=== PATIENT | male | born 1980 | race American Indian/Alaskan Native ===

== ENCOUNTER 2017-05-01 13:36 | Inpatient (IN) | payer MEDICAID, OTHER ==
[2017-05-01 13:36] VITALS: BMI 24.4
[2017-05-01 15:35] LABS: BASO % 0.6 % (0.0-2.0); EOS % 0.2 % (0.0-4.0); HEMATOCRIT 44.8 % (35.0-51.0); LYMPH # 3.1 K/uL (1.0-4.3); LYMPH % 47.2 % (20.0-40.0); MEAN CELL VOLUME 90.2 fL (80.0-94.0); MEAN CORPUSCULAR HEMOGLOBIN 29.5 pg (27.0-31.0); MEAN CORPUSCULAR HGB CONC 32.7 g/dL (33.0-37.0); MEAN PLATELET VOLUME 7.1 fL (7.2-11.7); MONO # 0.3 K/uL (0.0-0.8); MONO % 4.6 % (0.0-10.0); NRBC % 0.1 % (0.0-2.0); RED CELL DISTRIBUTION WIDTH 14.5 % (11.5-14.5); WHITE BLOOD COUNT 6.5 K/uL (4.8-10.8)
[2017-05-01 15:44] LABS: CHLORIDE 97 mmol/L (98-107); POTASSIUM 3.7 mmol/L (3.6-5.2); SODIUM 141 mmol/L (132-148)
[2017-05-01 15:46] LABS: ALB/GLOB RATIO 1.3 (1.0-2.1); ALKALINE PHOSPHATASE 67 U/L (38-126); AST/SGOT 56 U/L (17-59); BILIRUBIN,TOTAL 0.6 mg/dL (0.2-1.3); BLOOD UREA NITROGEN 12 mg/dL (9-20); CARBON DIOXIDE 27 mmol/L (22-30); GFR AFRICAN-AMERICAN > 60; TOTAL PROTEIN 8.1 g/dL (6.3-8.3)
[2017-05-01 15:47] LABS: ALCOHOL SERUM 292 mg/dl (0-10); ALT/SGPT 67 U/L (21-72); CALCIUM 8.4 mg/dl (8.6-10.4); GLUCOSE,RANDOM 89 mg/dL (75-110)
[2017-05-01 15:48] LABS: RBC URINE 24 /hpf (0-3); URINE BILIRUBIN NEGATIVE (NEGATIVE); URINE BLOOD 2+ (NEGATIVE); URINE COLOR Yellow (YELLOW); URINE GLUCOSE (UA) NORMAL (Normal); URINE KETONE NEGATIVE (NEGATIVE); URINE LEUKOCYTE ESTERASE NEG Leu/uL (Negative); URINE PROTEIN 1+ mg/dL (NEGATIVE); URINE UROBILINOGEN NORMAL mg/dL (0.2-1.0); WBC URINE 2 /hpf (0-5)
--- NOTE | 2017-05-01 18:14 | C.PDOC ---
History Of Present Illness Pt is here requesting detox from alcohol. Time Seen by Provider: 05/01/17 15:07 Chief Complaint (Nursing): Substance Abuse History Per: Patient Onset/Duration Of Symptoms: Days Current Symptoms Are (Timing): Still Present Suicide/Self Injury Attempted (Context): None Modifying Factor(s): Alcohol Severity: Moderate Associated Symptoms: denies: Suicidal Thoughts, Suicidal Plan Additional History Per: Prior Records Past Medical History Reviewed: Historical Data, Nursing Documentation, Vital Signs Vital Signs: Last Vital Signs Temp 98.0 F 05/01/17 16:59 Pulse 103 H 05/01/17 16:59 Resp 18 05/01/17 16:59 BP 126/86 05/01/17 16:59 Pulse Ox 99 05/01/17 18:14 - Medical History PMH: Anxiety, Depression, Hiatal Hernia, HTN, Chronic Kidney Disease Other PMH: Alcohol abuse Surgical History: Appendectomy Other Surgeries: Gastric bypass - [facility] Procedures DETOXIFICATION SERVICES FOR SUBSTANCE ABUSE TREATMENT (01/13/17) INDIV PSYCHOTHERAPY FOR SUBSTANCE ABUSE TREATMENT, SUPPORT (01/13/17) INDIV PSYCHOTHERAPY FOR SUBSTANCE ABUSE, COGNITIV BEHAVIORAL (01/13/17) INJECT/INFUSE ELECTROLYT (06/26/13) INJECT/INFUSE NEC (12/12/14) MEDS MGMT FOR SUBSTANCE ABUSE TREATMENT, ANTABUSE (01/13/17) OTHER APPENDECTOMY (07/02/13) Family History: States: Unknown Family Hx - Social History Hx Tobacco Use: No Hx Alcohol Use: Yes (heavy drinker.) Hx Substance Use: No - Immunization History Hx Tetanus Toxoid Vaccination: No Hx Influenza Vaccination: No Hx Pneumococcal Vaccination: No Review Of Systems Except As Marked, All Systems Reviewed And Found Negative. Constitutional: Negative for: Fever, Weakness Cardiovascular: Negative for: Chest Pain Respiratory: Negative for: Shortness of Breath Musculoskeletal: Negative for: Neck Pain Skin: Negative for: Rash Neurological: Negative for: Weakness, Numbness, Seizures Psych: Negative for: Psychosis Physical Exam - Physical Exam Appears: Non-toxic, No Acute Distress, Other (AOB) Skin: Normal Color, Warm, Dry, No Rash Head: Atraumatic, Normacephalic Eye(s): bilateral: Normal Inspection, PERRL, EOMI Neck: Normal ROM, Supple Cardiovascular: Rhythm Regular Respiratory: Normal Breath Sounds, No Accessory Muscle Use Gastrointestinal/Abdominal: Soft Extremity: Normal ROM, No Deformity Neurological/Psych: Oriented x3, Normal Motor, Normal Sensation ED Course And Treatment - Laboratory Results Result Diagrams: 05/01/17 15:38 05/01/17 15:30 Interpretation Of Abnormal: Elevated alcohol level. O2 Sat by Pulse Oximetry: 99 Pulse Ox Interpretation: Normal Disposition - Disposition Disposition Time: 19:49 Condition: STABLE - Clinical Impression Clinical Impression: Alcohol dependence Physician Patient Turnover Patient Signed Over To: Vadim Kumar Handoff Comments: to f/up bushel worker eval. and reassesss pt.
[2017-05-02] MEDS ORDERED: Pneumococcal 23-Valent Vaccine IM ONE (03:15)
[2017-05-02] MEDS: Multiple Vitamins Tab PO SCH (09:40)
--- NOTE | 2017-05-02 12:56 | PCM.PSYCH ---
Initial Psychiatric Evaluation - Initial Psychiatric Evaluation Type of Admission: Voluntary Legal Status: Capacity Chief Complaint (in patient's own words): "I relapsed" History of Present Illness and Precipitating Events: Pt seen, chart reviewed, and case discussed with team. He is known from previous admissions. Pt is a 36yo AA M, in a relationship but not sure if they are still together now that he relapsed, has 2 children aged 10 with his parents, was employed but lost job recently. He gives inconsistent answers at times. Pt is here for detox after relapsing with alcohol use again, currently the pt reports that he drinks many bottles of wine daily for the past 4-5 days. Pt has been in this detox unit twice before and was d/c to [facility] in january 2017. He says he went for a while and then relapsed. He denies other drug use but gets rx for xanax 0.5 "20 pills a month" He has wdw sxs Pt currently denies depression, hallucinations, delusions, suicidal ideation, and other thoughts of self harm. He looks pleasant. Psych: denies PMH: HTN SurgHx: Gastric bypass, appendectomy, abd hernia repair x2 Allergies: NKDA FamHx: denies Current Medications: Active Medications Generic Name Dose Route Start Last Admin Trade Name Freq PRN Reason Stop Dose Admin Chlordiazepoxide 25 mg 05/02/17 00:00 05/02/17 06:42 Librium PO 05/05/17 23:59 25 mg Q6 IVAN Administration Taper Chlordiazepoxide 25 mg 05/01/17 22:26 05/02/17 07:53 Librium PO 25 mg Q4H PRN Administration Alcohol Withdrawal Clonidine HCl 0.1 mg 05/02/17 00:43 05/02/17 00:48 Catapres PO 0.1 mg Q4H PRN Administration Symptoms of alcohol withdrawl Folic Acid 1 mg 05/02/17 10:00 05/02/17 09:40 Folic Acid PO 1 mg DAILY IVAN Administration Multivitamins 1 tab 05/02/17 10:00 05/02/17 09:40 Hexavitamin PO 1 tab DAILY IVAN Administration Ondansetron HCl 4 mg 05/02/17 00:43 05/02/17 07:54 Zofran Tab PO 4 mg Q8 PRN Administration Nausea/Vomiting Pneumococcal Polyvalent Vaccine 0.5 ml 05/05/17 10:00 Pneumovax 23 Vaccine IM 05/05/17 10:01 .ONCE ONE Thiamine HCl 100 mg 05/02/17 10:00 05/02/17 09:40 Vitamin B1 Tab PO 100 mg DAILY IVAN Administration Trazodone HCl 100 mg 05/02/17 09:46 Desyrel PO HS PRN Insomnia Past Psychiatric History - Past Psychiatric History Previous Treatment History: None Pertinent Medical Hx (Current Medical&Sleep Prob, Allergies): Allergies Allergy/AdvReac Type Severity Reaction Status Date / Time sesame seed Allergy ANAPHYLAXIS Verified 05/01/17 14:13 hummus Allergy ANAPHYLAXIS Uncoded 05/01/17 14:13 No Known Home Med 05/01/17 Review of Systems - Psychiatric Psychiatric: Abnormal Sleep Pattern, Anxiety, Difficulty Concentrating. absent : Depression, Hallucinations, Homicidal Ideation, Suicidal Ideation Mental Status Examination - Personal Presentation Personal Presentation: Looks stated age - Affect Affect: Constricted - Motor Activity Motor Activity: Calm - Reliability in Providing Information Reliability in Providing Information: Fair - Speech Speech: Organized - Mood Mood: Anxious - Formal Thought Process Formal Thought Process: No Impairment - Cognitive Functions Orientation: Person, Place, Situation, Time Sensorium: Alert Attention/Concentration: Attentive Estimate of Intelligence: Average Judgement: Intact, as evidence by: Insight regarding need for hospitalization Memory: Recent intact, as evidence by: Ability to recall events of the day, Remote intact, as evidenced by: Abilit to recall sig. life events - Risk Risk: Withdrawal, Diminished functioning - Strength & Assets Inventory Strength & Assets Inventory: Cooperative - Limitations Limitations: Living alone DSM 5 DX - DSM 5 DSM 5 Diagnosis: Alcohol withdrawal Alcohol use d/o - seveer r/o sedative hypnotic use d/o - moderate - Recommended/Plan of Treatment Projected ELOS: 4 days Prognosis: Good with treatment Discharge Plan and Discharge Criteria: No wdw sxs Refer to rehab and MAT - Smoking Cessation Smoking Cessation Initiated: Yes
[2017-05-03] MEDS: Multiple Vitamins Tab PO SCH (09:19)
--- NOTE | 2017-05-03 13:21 | PCM.PYCHPN ---
Psychiatric Progress Note - Psychiatric Progress Note Patient seen today, length of contact: 16 min Patient Chief Complaint: "I am better" Problems Identified/Issues Discussed: The pt is seen, chart reviewed, case discussed with staff. Support given, CBT and NM used briefly No new symptoms reported, improving slowly and needs more time No SEs from medications, risks discussed. After care discussed Medication Change: Yes (detox changes daily) Medical Record Reviewed: Yes Mental Status Examination - Cognitive Function Orientation: Person, Place, Situation, Time Memory: Intact Attention: WNL Concentration: WNL Association: WNL Fund of Knowledge: WNL - Mood Mood: Anxious - Affect Affect: Constricted - Speech Speech: Appropriate - Formal Thought Process Formal Thought Process: No Impairment - Suicidal Ideation Suicidal Ideation: No - Homicidal Ideation Homicidal Ideation: No Goal/Treatment Plan - Goal/Treatment Plan Need for Continued Stay: Discharge may exacerbated symptoms, Severe functional impairment Progress Toward Problem(s) and Goals/Treatment Plan: Librium detox Gabapentin for augmentation As needed meds and vitamins Attend groups and activities NM for abstinence and CBT for relapse prevention Support and psychoeducation Consider and encourage MAT, ie Naltrexone, followed by Vivitrol Refer to after care
[2017-05-04] MEDS: Multiple Vitamins Tab PO SCH (09:58)
--- NOTE | 2017-05-04 14:15 | PCM.PYCHPN ---
Psychiatric Progress Note - Psychiatric Progress Note Patient seen today, length of contact: 16 min Patient Chief Complaint: "I am OK but afraid of relapse" Problems Identified/Issues Discussed: The pt is seen, chart reviewed, case discussed with staff. The pt is compliant with medications and reports no side-effects. Symptoms are improving but needs more time to stabilize. After care discussed, support and psychoeducation given. Relapse prevention discussed Medication Change: Yes (detox changes daily) Medical Record Reviewed: Yes Mental Status Examination - Cognitive Function Orientation: Person, Place, Situation, Time Memory: Intact Attention: WNL Concentration: WNL Association: WNL Fund of Knowledge: WNL - Mood Mood: Anxious - Affect Affect: Constricted - Speech Speech: Appropriate - Formal Thought Process Formal Thought Process: No Impairment - Suicidal Ideation Suicidal Ideation: No - Homicidal Ideation Homicidal Ideation: No Goal/Treatment Plan - Goal/Treatment Plan Need for Continued Stay: Discharge may exacerbated symptoms, Severe functional impairment Progress Toward Problem(s) and Goals/Treatment Plan: Librium detox Gabapentin for augmentation As needed meds and vitamins Attend groups and activities CT for abstinence and CBT for relapse prevention Support and psychoeducation Consider and encourage MAT, ie Naltrexone, followed by Soo Referred to after care Estimated Date of D/C: 05/05/17
[2017-05-04] MEDS: Aritificial Tears (15ml) OU PRN (20:36)
[2017-05-04] MEDS ORDERED: Vitamins A & D Oint UD Foilpak TOP ONE (22:52)
[2017-05-05] MEDS: Aritificial Tears (15ml) OU PRN (07:42)
--- NOTE | 2017-05-05 08:44 | PCM.PYCHDC ---
Mental Status Examination - Mental Status Examination Orientation: Person, Place, Situation, Time Memory: Intact Mood: Anxious Affect: Broad Speech: Appropriate Attention: WNL Concentration: WNL Association: WNL Fund of Knowledge: WNL Formal Thought Process: No Impairment Suicidal Ideation: No Current Homicidal Ideation?: No Discharge Summary - Discharge Note Reason for Hospitalization: Alcohol detox Psychiatric History (includes Medical, Family, Personal Hx): None Consultations:: List each consultation separately and include: 1. Reason for request. 2. Findings. 3. Follow-up Consultations: None Summary of Hospital Course include:: 1. Description of specific treatment plan utilized for patients during their course of treatmen. 2. Summarize the time- course for resolution of acute symptoms and/or regressed behaviors. 3. Describe issues identified and worked on during hospitalization. 4. Describe medication utilized. 5. Describe medical problems identified and treated. 6. Reassessment of suicide risk Summary of Hospital Course: On admission: Pt seen, chart reviewed, and case discussed with team. He is known from previous admissions. Pt is a 36yo AA M, in a relationship but not sure if they are still together now that he relapsed, has 2 children aged 10 with his parents, was employed but lost job recently. He gives inconsistent answers at times. Pt is here for detox after relapsing with alcohol use again, currently the pt reports that he drinks many bottles of wine daily for the past 4-5 days. Pt has been in this detox unit twice before and was d/c to [facility] in january 2017. He says he went for a while and then relapsed. He denies other drug use but gets rx for xanax 0.5 "20 pills a month" He has wdw sxs Pt currently denies depression, hallucinations, delusions, suicidal ideation, and other thoughts of self harm. He looks pleasant. Psych: denies PMH: HTN SurgHx: Gastric bypass, appendectomy, abd hernia repair x2 Allergies: NKDA FamHx: denies Hospital course: The pt was admitted and started on treatment with psychotherapy, support, psychoeducation and medications. UT and CBT used. The pt attended groups and activities, as well as milieu therapy. All the risks and benefits of medications are discussed and the patient understood and agreed. After care discussed with the patient. He went to [facility] and is committed to getting the Vivitrol shot "RANDAL!" He was pleasant and motivated, but anxious. - Final Diagnosis (DSM 5) Condition upon Discharge: STABLE DSM 5: Alcohol withdrawal Alcohol use d/o - severe r/o sedative hypnotic use d/o - moderate Disposition: HOME/ ROUTINE Follow-up Treatment Plan: Continue below medications after discharge. Follow after care plan as discussed. At [facility] Use relapse prevention skills Return to ER or call 911 if suicidal, homicidal or symptoms relapse. Stay away from stress, alcohol and drugs. See primary doctor once a year. Prescriptions/Medication Reconciliation: Gabapentin [Neurontin] 300 mg PO TID #90 cap Naltrexone [Revia] 50 mg PO DAILY #30 tab traZODone [Desyrel] 100 mg PO HS PRN #30 tab PRN Reason: Insomnia - Smoking Cessation Smoking Cessation Medication prescribed: No - Antipsychotic Medications Pt discharged on 2 or more routine antipsychotic medications: No
[2017-05-05] MEDS: Multiple Vitamins Tab PO SCH (09:46)
[2017-05-05] MEDS ORDERED: Pneumococcal 23-Valent Vaccine IM ONE (10:00)
[2017-05-05 10:49] VITALS: BP 115/80; PULSE 94; RESP 18; TEMP 97.5; O2SAT 99
[2017-05-05] MEDS ORDERED: Vitamins A & D Oint UD Foilpak TOP ONE (22:27)
== END 2017-05-05 10:45 | disposition home or self-care (01) | DRG 750 ==
LOC: C.ER 13:36 → C.7D 22:06
PROVIDERS: ADMIT Psychiatry & Neurology Psychiatry; ATTEND Psychiatry & Neurology Psychiatry
PROC: HZ2ZZZZ Detoxification Services for Substance Abuse Treatment (ICD-10-PCS; principal; 2017-05-01)
PROC: HZ52ZZZ Individual Psychotherapy for Substance Abuse Treatment, Cognitive-Behavioral (ICD-10-PCS; 2017-05-01)
PROC: HZ59ZZZ Individual Psychotherapy for Substance Abuse Treatment, Supportive (ICD-10-PCS; 2017-05-01)
PROC: HZ56ZZZ Individual Psychotherapy for Substance Abuse Treatment, Psychoeducation (ICD-10-PCS; 2017-05-01)
DX: F10.230 Alcohol dependence with withdrawal, uncomplicated (principal); N18.9 Chronic kidney disease, unspecified; I12.9 Hypertensive chronic kidney disease with stage 1 through stage 4 chronic kidney disease, or unspecified chronic kidney disease; F32.9 Major depressive disorder, single episode, unspecified; F41.9 Anxiety disorder, unspecified; K44.9 Diaphragmatic hernia without obstruction or gangrene; Z98.84 Bariatric surgery status

== ENCOUNTER 2019-03-09 19:19 | Inpatient (IN) | payer MEDICAID, OTHER ==
[2019-03-09 19:19] VITALS: BMI 24.4
[2019-03-09 20:11] LABS: BASO # 0.1 K/uL (0.0-0.2); BASO % 1.2 % (0.0-2.0); EOS # 0.1 K/uL (0.0-0.7); EOS % 1.1 % (0.0-4.0); HEMOGLOBIN 16.1 g/dL (12.0-18.0); LYMPH # 3.4 K/uL (1.0-4.3); LYMPH % 56.6 % (20.0-40.0); MEAN CELL VOLUME 88.6 fL (80.0-94.0); MEAN CORPUSCULAR HEMOGLOBIN 28.7 pg (27.0-31.0); MEAN CORPUSCULAR HGB CONC 32.4 g/dL (33.0-37.0); MEAN PLATELET VOLUME 6.7 fL (7.2-11.7); MONO # 0.4 K/uL (0.0-0.8); MONO % 5.8 % (0.0-10.0); NEUT # 2.1 K/uL (1.8-7.0); NEUT % 35.3 % (50.0-75.0); NRBC % 0.1 % (0.0-2.0); RBC 5.61 Mil/uL (4.40-5.90); RED CELL DISTRIBUTION WIDTH 15.5 % (11.5-14.5); WHITE BLOOD COUNT 6.1 K/uL (4.8-10.8)
[2019-03-09 20:23] LABS: ALB/GLOB RATIO 1.4 (1.0-2.1); ALBUMIN 4.8 g/dL (3.5-5.0); ALT/SGPT 40 U/L (21-72); AST/SGOT 58 U/L (17-59); BLOOD UREA NITROGEN 14 mg/dL (9-20); CALCIUM 8.8 mg/dl (8.6-10.4); GFR NON-AFRICAN AMERICAN > 60
--- NOTE | 2019-03-09 20:52 | C.PDOC ---
History Of Present Illness 38 year old male presents to the ED requesting detox for alcohol abuse. Patient reports his last drink was this morning. Patient denies SI/HI, hallucinations, drug use, tobacco use, other medical complaints at this time. Time Seen by Provider: 03/09/19 19:42 Chief Complaint (Nursing): Substance Abuse History Per: Patient History/Exam Limitations: no limitations Onset/Duration Of Symptoms: Hrs Current Symptoms Are (Timing): Still Present Suicide/Self Injury Attempted (Context): None Modifying Factor(s): Alcohol Associated Symptoms: denies: Depression, Suicidal Thoughts, Suicidal Plan Recent travel outside of the [place]: No Additional History Per: Patient Past Medical History Reviewed: Historical Data, Nursing Documentation, Vital Signs Vital Signs: Last Vital Signs Temp 97.8 F 03/09/19 19:39 Pulse 110 H 03/09/19 19:39 Resp 18 03/09/19 19:39 BP 123/94 H 03/09/19 19:39 Pulse Ox 96 03/09/19 19:39 - Medical History PMH: Anxiety, Depression, Hiatal Hernia, HTN, Seizures Denies: Diabetes, Hepatitis, HIV, Chronic Kidney Disease, Sexually Transmitted Disease Surgical History: Appendectomy - [facility] Procedures DETOXIFICATION SERVICES FOR SUBSTANCE ABUSE TREATMENT (05/01/17) INDIV PSYCHOTHERAPY FOR SUBSTANCE ABUSE TREATMENT, SUPPORT (05/01/17) INDIV PSYCHOTHERAPY FOR SUBSTANCE ABUSE, COGNITIV BEHAVIORAL (05/01/17) INDIV PSYCHOTHERAPY FOR SUBSTANCE ABUSE, PSYCHOEDUCATION (05/01/17) INJECT/INFUSE ELECTROLYT (06/26/13) INJECT/INFUSE NEC (12/12/14) MEDS MGMT FOR SUBSTANCE ABUSE TREATMENT, ANTABUSE (01/13/17) OTHER APPENDECTOMY (07/02/13) Family History: States: Unknown Family Hx - Social History Hx Tobacco Use: No Hx Alcohol Use: Yes Hx Substance Use: No - Immunization History Hx Tetanus Toxoid Vaccination: No Hx Influenza Vaccination: No Hx Pneumococcal Vaccination: No Review Of Systems Constitutional: Negative for: Fever, Chills Cardiovascular: Negative for: Chest Pain Respiratory: Negative for: Shortness of Breath Gastrointestinal: Negative for: Nausea, Vomiting, Abdominal Pain Skin: Negative for: Rash Psych: Negative for: Depression, Suicidal ideation Physical Exam - Physical Exam Appears: Non-toxic, No Acute Distress Skin: Normal Color, Warm, Dry Head: Atraumatic, Normacephalic Eye(s): bilateral: Normal Inspection Neck: Normal ROM, Supple Chest: Symmetrical Cardiovascular: Rhythm Regular Respiratory: Normal Breath Sounds, No Rales, No Rhonchi, No Wheezing Gastrointestinal/Abdominal: Soft, No Tenderness Extremity: Normal ROM, No Tenderness, No Swelling Neurological/Psych: Oriented x3, Normal Speech, Normal Cognition Gait: Steady ED Course And Treatment - Laboratory Results Result Diagrams: 03/09/19 20:08 03/09/19 20:08 Lab Results: Total Bilirubin 0.5 mg/dL (0.2-1.3) 03/09/19 20:08 AST 58 U/L (17-59) 03/09/19 20:08 ALT 40 U/L (21-72) 03/09/19 20:08 Alkaline Phosphatase 81 U/L (38-126) 03/09/19 20:08 Total Protein 8.2 g/dL (6.3-8.3) 03/09/19 20:08 Albumin 4.8 g/dL (3.5-5.0) 03/09/19 20:08 Globulin 3.4 gm/dL (2.2-3.9) 03/09/19 20:08 Albumin/Globulin Ratio 1.4 (1.0-2.1) 03/09/19 20:08 O2 Sat by Pulse Oximetry: 96 (ON RA) Pulse Ox Interpretation: Normal Medical Decision Making Medical Decision Making: Plan: * labs * ua * crisis eval Patient is medically cleared Disposition - Disposition Disposition: HOSPITALIZED Disposition Time: 21:00 Condition: STABLE - Clinical Impression Clinical Impression: Alcohol dependence - Scribe Statement The provider has reviewed the documentation as recorded by the Scribe Wilmer Hurtado All medical record entries made by the Scribe were at my direction and personally dictated by me. I have reviewed the chart and agree that the record accurately reflects my personal performance of the history, physical exam, medical decision making, and the department course for this patient. I have also personally directed, reviewed, and agree with the discharge instructions and disposition.
[2019-03-09 21:10] LABS: SQUAMOUS EPITHIAL 3 /hpf (0-5); URINE BACTERIA OCC (<OCC); URINE BILIRUBIN NEGATIVE (NEGATIVE); URINE BLOOD 3+ (NEGATIVE); URINE CLARITY Hazy (Clear); URINE COLOR Yellow (YELLOW); URINE GLUCOSE (UA) NORMAL (Normal); URINE LEUKOCYTE ESTERASE NEG Leu/uL (Negative); URINE PROTEIN 1+ mg/dL (NEGATIVE); URINE UROBILINOGEN NORMAL mg/dL (0.2-1.0)
[2019-03-09 21:17] LABS: BARBITURATES, UR NEGATIVE (NEGATIVE); BENZODIAZEPINES, UR NEGATIVE (NEGATIVE); OPIATES, UR NEGATIVE (NEGATIVE); PHENCYCLIDINE, UR NEGATIVE (NEGATIVE)
--- NOTE | 2019-03-09 22:14 | PCM.BM ---
<Ariel Manley - Last Filed: 03/09/19 22:11> Treatment Plan Problems - Problems identified on initial assessmt Denial Date Initiated: 03/09/19 Time Initiated: 22:12 Assessment reference: NA Status: Active Anxiety Related to Substance Use Date Initiated: 03/09/19 Time Initiated: 22:12 Assessment reference: NA Status: Active Defensive Coping Date Initiated: 03/09/19 Time Initiated: 22:12 Assessment reference: NA Status: Active Treatment assets and liabiliti Patient Assests: cooperative, negotiates basic needs Patient Liabilities: substance abuse <Bailey Cr - Last Filed: 03/12/19 13:27> Family Contact Family involvement: Famliy/SO not involved - Goals for Treatment Patient goals for treatment: Complete detox and resume AA meetings. Discharge/Continuing Care - Education Needs Education Needs: Patient Medication, Patient Diagnosis/Disease Process, Patient Coping Skills, Patient Anger Management skills, Patient Placement options, Patient Community resources - Discharge Discharge Criteria: No longer exhibiting s/s of withdrawal, Reduction of target symptoms Discharge to:: Home - Treatment Team Participation Patient/Family/SO Statement: 03/12/19 13:26 "I just wanna get back to meetings..." Discussed with Family/SO: No Was Patient/Family/SO present at Treatment Team Meeting: Yes
--- NOTE | 2019-03-10 22:06 | PCM.PSYCH ---
Initial Psychiatric Evaluation - Initial Psychiatric Evaluation Type of Admission: Voluntary Legal Status: Capacity Chief Complaint (in patient's own words): Patient is a 38 year old -[place]ish male, who presented to the ED for alcohol detox. Patient reports that he has been drinking "everything" and was unable to quantify how much he has been drinking. He reports drinking from morning to evening. He reports that he had been sober for 2 years, and relapsed last Monday. Patient reports that he started drinking 3 years ago after he lost his job. He reports that he went to [facility] then being transferred to [facility] for Detox the first time. Patient reports a history of shakes, sweats and visual hallucinations while withdrawing. He denies any history of seizures of DTs. He report that he has not been to any other detox other than [facility]. He denies any illicit drug use, tobacco use, denies SI/HI, delusions or paranoia at this time. PyschHx: Alcohol Use Disorder PMHx: Hx of pancreatitis FamHx: Uncle and brother - Alcohol use disorder Current Medications: Active Medications Generic Name Dose Route Start Last Admin Trade Name Freq PRN Reason Stop Dose Admin Chlordiazepoxide 25 mg 03/10/19 03:03 03/10/19 18:55 Librium PO 25 mg Q6H PRN Administration ETOH WITHDRAWAL Chlordiazepoxide 25 mg 03/10/19 12:00 03/10/19 17:01 Librium PO 03/14/19 11:59 25 mg Q6 IVAN Administration Taper Clonidine HCl 0.1 mg 03/10/19 16:27 03/10/19 21:27 Catapres PO 0.1 mg Q4H PRN Administration Symptoms of alcohol withdrawl Ondansetron HCl 4 mg 03/10/19 02:49 03/10/19 03:04 Zofran Tab PO 4 mg Q6H PRN Administration Nausea/Vomiting Pneumococcal Polyvalent Vaccine 0.5 ml 03/13/19 10:00 Pneumovax 23 Vaccine IM 03/13/19 10:01 .ONCE ONE Trazodone HCl 50 mg 03/10/19 22:00 03/10/19 21:26 Desyrel PO 50 mg HS IVAN Administration Past Psychiatric History - Past Psychiatric History Pertinent Medical Hx (Current Medical&Sleep Prob, Allergies): Allergies Allergy/AdvReac Type Severity Reaction Status Date / Time sesame seed Allergy ANAPHYLAXIS Verified 03/09/19 19:42 hummus Allergy ANAPHYLAXIS Uncoded 03/09/19 19:42 No Known Home Med 03/09/19 Review of Systems - Psychiatric Psychiatric: As Per HPI, Abnormal Sleep Pattern, Anxiety, Behavioral Changes, Depression Mental Status Examination - Personal Presentation Personal Presentation: Looks stated age - Affect Affect: Constricted, Depressed - Motor Activity Motor Activity: Calm - Reliability in Providing Information Reliability in Providing Information: Fair - Speech Speech: Relevant, Coherent - Mood Mood: Depressed, Anxious - Formal Thought Process Formal Thought Process: No Impairment - Obsessions/Compulsions Obsessions: None Compulsions: None - Cognitive Functions Orientation: Person, Place, Situation, Time Sensorium: Alert Attention/Concentration: Attentive Estimate of Intelligence: Average Judgement: Imparied, as evidence by: Poor judgement - Strength & Assets Inventory Strength & Assets Inventory: Employment status DSM 5 DX - DSM 5 DSM 5 Diagnosis: Alcohol Use Disorder - Recommended/Plan of Treatment Treatment Recommendations and Plan of Treatment: Taper with Librium Gabapentin for augmentation if needed As needed medications: - Clonidine, Librium, Trazodone All risks, benefits and alternatives of the meds discussed, and the pt agreed and understood. Attend groups and activities Supportive therapy and psychoeducation MN for abstinence CBT for relapse prevention Encourage MAT Refer to rehab or IOP, and self-help groups Teach healthy lifestyle methods, i.e. diet, exercise, meditation Smoking cessation with MN Nicotine patch if needed 34 min - Smoking Cessation Smoking Cessation Initiated: No Reason for not providing: Patient is not a smoker
--- NOTE | 2019-03-11 23:23 | PCM.PYCHPN ---
Psychiatric Progress Note - Psychiatric Progress Note Medication Change: Yes Medical Record Reviewed: Yes Mental Status Examination - Cognitive Function Orientation: Person, Place, Situation, Time - Mood Mood: Depressed, Anxious - Affect Affect: Constricted, Depressed - Formal Thought Process Formal Thought Process: No Impairment
[2019-03-13 06:08] VITALS: BP 124/87; PULSE 70; RESP 20; TEMP 97.5; O2SAT 99
[2019-03-13] MEDS ORDERED: Pneumococcal 23-Valent Vaccine IM ONE ×2 (10:00)
--- NOTE | 2019-03-13 14:11 | PCM.PYCHDC ---
Mental Status Examination - Mental Status Examination Orientation: Person, Place, Situation, Time Memory: Intact Mood: Anxious Affect: Constricted Speech: Appropriate Attention: WNL Concentration: WNL Association: WNL Fund of Knowledge: WNL Formal Thought Process: No Impairment Suicidal Ideation: No Current Homicidal Ideation?: No Discharge Summary - Discharge Note Reason for Hospitalization: Alcohol detox Consultations:: List each consultation separately and include: 1. Reason for request. 2. Findings. 3. Follow-up Summary of Hospital Course include:: 1. Description of specific treatment plan utilized for patients during their course of treatmen. 2. Summarize the time- course for resolution of acute symptoms and/or regressed behaviors. 3. Describe issues identified and worked on during hospitalization. 4. Describe medication utilized. 5. Describe medical problems identified and treated. 6. Reassessment of suicide risk Summary of Hospital Course: Hospital course: The pt was admitted and started on treatment with psychotherapy, support, psychoeducation and medications. CO and CBT used. The pt attended groups and activities, as well as milieu therapy. All the risks and benefits of medications are discussed and the patient understood and agreed. The pt improved with the treatments provided. After care discussed with the patient. He will attend AA and consider IOP. - Final Diagnosis (DSM 5) Condition upon Discharge: STABLE DSM 5: Alcohol Use Disorder Disposition: HOME/ ROUTINE Follow-up Treatment Plan: Continue below medications after discharge. Follow after care plan as discussed. Use relapse prevention skills Return to ER or call 911 if suicidal, homicidal or symptoms relapse. Stay away from stress, alcohol and drugs. See primary doctor regularly and get labs. Prescriptions/Medication Reconciliation: traZODone [Desyrel] 50 mg PO HS #30 tab
--- NOTE | 2019-03-13 14:26 | PCM.PYCHPN ---
Psychiatric Progress Note - Psychiatric Progress Note Patient seen today, length of contact: 16 min Medication Change: Yes Medical Record Reviewed: Yes Mental Status Examination - Cognitive Function Orientation: Person - Mood Mood: Depressed, Anxious - Affect Affect: Constricted, Depressed - Formal Thought Process Formal Thought Process: No Impairment
== END 2019-03-13 06:27 | disposition home or self-care (01) | DRG 895 ==
LOC: C.ER 19:19 → C.7D 21:33
PROVIDERS: ADMIT Psychiatry & Neurology Psychiatry; ATTEND Psychiatry & Neurology Psychiatry
PROC: HZ2ZZZZ Detoxification Services for Substance Abuse Treatment (ICD-10-PCS; principal; 2019-03-09)
PROC: HZ46ZZZ Group Counseling for Substance Abuse Treatment, Psychoeducation (ICD-10-PCS; 2019-03-09)
PROC: HZ59ZZZ Individual Psychotherapy for Substance Abuse Treatment, Supportive (ICD-10-PCS; 2019-03-09)
DX: F10.20 Alcohol dependence, uncomplicated (principal); Y90.7 Blood alcohol level of 200-239 mg/100 ml; F32.9 Major depressive disorder, single episode, unspecified; F41.9 Anxiety disorder, unspecified; I10 Essential (primary) hypertension; K44.9 Diaphragmatic hernia without obstruction or gangrene; R56.9 Unspecified convulsions; Z56.0 Unemployment, unspecified